=== PATIENT | female | born 1980 | race Two or more races ===

== ENCOUNTER → 2020-09-07 | Outpatient (CLI) | payer OTHER ==
--- NOTE | 2020-09-07 10:50 | XR ---
EXAMINATION TYPE: XR toes RT DATE OF EXAM: 09/07/2020 COMPARISON: NONE HISTORY: 40-year-old female with trauma, redness and pain. TECHNIQUE: 3 views coned down right first toe FINDINGS: There is some soft tissue swelling of the great toe. No acute fracture, subluxation, or dislocation i s seen. IMPRESSION: Some soft tissue swelling without acute osseous abnormality identified on images coned-down on the ri t great toe.
--- NOTE | 2020-09-07 12:05 | ECHOF ---
Referral Reason:R01.1 Cardiac [place] MEASUREMENTS -------- HEIGHT: 157.5 cm WEIGHT: 57.2 kg BP: RVIDd: 1.9 cm (< 3.3) IVSd: 0.9 cm (0.6 - 1.1) LVIDd: 4.0 cm (3.9 - 5.3) LVPWd: 0.9 cm (0.6 - 1.1) IVSs: 1.2 cm LVIDs: 2.8 cm LVPWs: 1.3 cm LA Diam: 2.8 cm (2.7 - 3.8) LAESV Index (A-L): 25.95 ml/m Ao Diam: 2.7 cm (2.0 - 3.7) AV Cusp: 1.6 cm (1.5 - 2.6) MV EXCURSION: 13.818 mm (> 18.000) MV EF SLOPE: 92 mm/s (70 - 150) EPSS: 0.1 cm MV E Jerrod: 1.11 m/s MV DecT: 169 ms MV A Jerrod: 0.83 m/s MV E/A Ratio: 1.34 RAP: 5.00 mmHg RVSP: 20.05 mmHg FINDINGS -------- Sinus rhythm. This was a technically good study. LV size, wall thickness and systolic function are normal, with an EF greater than 55%. The left phil tricular size is normal. The right ventricle is normal in size. Normal LA size by volume 22+/-6 ml/m2. The right atrial size is normal. The aortic valve is trileaflet, and appears structurally normal. No aortic stenosis or regurgitation. The mitral valve is normal. Mild mitral regurgitation is present. The tricuspid valve appears structurally normal. Mild tricuspid regurgitation present. Right vent ricular systolic pressure is normal at < 35 mmHg. Trace/mild (physiologic) pulmonic regurgitation. The aortic root size is normal. There is no pericardial effusion. CONCLUSIONS -------- 1. LV size, wall thickness and systolic function are normal, with an EF greater than 55%. 2. Normal LA size by volume 22+/-6 ml/m2. 3. The aortic valve is trileaflet, and appears structurally normal. No aortic stenosis or regurgitati on. 4. Mild mitral regurgitation is present. 5. Mild tricuspid regurgitation present. 6. Trace/mild (physiologic) pulmonic regurgitation. 7. There is no pericardial effusion. WEAVER HAND: Faviola Aragon RDCS
== END | disposition home or self-care (01) ==
LOC: RADECHMAIN 08:26
PROVIDERS: ATTEND Family Medicine
DX: I08.1 Rheumatic disorders of both mitral and tricuspid valves (principal); M79.89 Other specified soft tissue disorders
CPT/HCPCS: 93306